=== PATIENT | female | born 1965 | race Caucasian/White ===

== ENCOUNTER 2017-06-13 15:50 | Emergency (ER) | payer OTHER ==
[~2017-06-13] VITALS: Ht 157.5 cm; Wt 121.8 kg
[2017-06-13 16:07] LABS: GLUCOSE,POINT OF CARE 361 MG/DL (70-110)
[2017-06-13] MEDS ORDERED: DSS100 PO (16:08)
[2017-06-13] MEDS ORDERED: CETI-290 PO (16:08)
[2017-06-13] MEDS ORDERED: LOSA25TA21 PO (16:08)
[2017-06-13] MEDS ORDERED: OMEP20 PO (16:08)
[2017-06-13] MEDS ORDERED: IBUP-2071 PO (16:08)
[2017-06-13] MEDS ORDERED: METF500T4 PO (16:08)
[2017-06-13] MEDS ORDERED: FLUT16H NASAL (16:08)
[2017-06-13] MEDS ORDERED: INSLAN SQ (16:08)
[2017-06-13] MEDS ORDERED: HYDR25TA PO (16:08)
[2017-06-13] MEDS ORDERED: ASPI81 PO (16:08)
[2017-06-13] MEDS ORDERED: ATOR40TA28 PO (16:08)
[2017-06-13 17:01] LABS: BASOPHILS % (AUTO) 0.5 % (0.0-2.0); EOSINOPHILS % (AUTO) 1.1 % (1.0-6.0); HEMATOCRIT 39.8 % (36-46); LYMPHOCYTES # (AUTO) 2.7 K/uL (1.0-4.8); LYMPHOCYTES % (AUTO) 36.8 % (22.0-44.0); MEAN CORPUSCULAR HEMOGLOBIN 31.4 pg (26.0-34.0); MEAN CORPUSCULAR HGB CONC 35.3 G/dL (31.0-37.0); MEAN CORPUSCULAR VOLUME 89 fL (80-100); MONOCYTES # (AUTO) 0.3 K/uL (0.1-1.0); MONOCYTES % (AUTO) 4.3 % (2.0-9.0); NEUTROPHILS # (AUTO) 4.2 K/uL (1.8-7.7); NEUTROPHILS % (AUTO) 57.3 % (40.0-70.0); PLATELET COUNT (AUTO) 148 K/uL (150-450); RED BLOOD CELL COUNT(AUTO) 4.48 MIL/uL (4.00-5.20); WHITE BLOOD COUNT (AUTO) 7.3 K/uL (4.5-11.0)
[2017-06-13 17:17] LABS: ANION GAP 9 mmol/L (8-16); CALCIUM, TOTAL 8.3 mg/dL (8.8-10.5); CARBON DIOXIDE 27 mmol/L (22-29); CHLORIDE 102 mmol/L (98-107); CREATININE 0.61 mg/dL (0.60-1.30); GLOMERULAR FILTR. RATE CALC > 60 mL/min (>60); POTASSIUM 3.7 mmol/L (3.5-5.1); SODIUM SERUM 138 mmol/L (136-145); UREA NITROGEN, BLOOD 13 mg/dL (7-18)
[2017-06-13 17:24] LABS: ALANINE AMINOTRANSFERASE 19 U/L (12-78); ALBUMIN 3.1 g/dL (3.4-5.0); ASPARTATE AMINOTRANSFERASE 11 U/L (15-37); BILIRUBIN,TOTAL 0.7 mg/dL (0.1-1.0); TOTAL PROTEIN, SERUM 6.7 g/dL (6.4-8.2)
[2017-06-13 17:33] LABS: PROTHROMBIN TIME 10.8 SEC (9.4-11.6)
[2017-06-13 18:33] VITALS: BP 145/79
[2017-06-13] MEDS ORDERED: HYDROCODONE/ACETAMINOPHEN 5-325 MG TABLET PO ONE (19:00)
== END 2017-06-13 20:05 | disposition home or self-care (01) ==
LOC: EMS 15:51
DX: M79.605 Pain in left leg (principal); E11.9 Type 2 diabetes mellitus without complications; E78.00 Pure hypercholesterolemia, unspecified; I10 Essential (primary) hypertension; Z79.4 Long term (current) use of insulin; Z79.82 Long term (current) use of aspirin
CPT/HCPCS: 82962; 93970; 99285

== ENCOUNTER 2018-09-06 11:59 | Emergency (ER) | payer OTHER ==
[~2018-09-06] VITALS: Ht 154.9 cm; Wt 117.3 kg
[~2018-09-06 11:59] MED LIST: ASPI81 PO; ATOR40TA28 PO; CETI-170 PO; DSS100 PO; FLUT16H NASAL; HYDR25TA PO; IBUP-2071 PO; INSLAN SQ; LOSA25TA41 PO; METF-960 PO; OMEP20 PO
[2018-09-06 12:14] LABS: GLUCOSE,POINT OF CARE 317 MG/DL (70-110)
[2018-09-06] MEDS ORDERED: PROMETHAZINE HCL/CODEINE 6.25-10MG/5ML SYRUP UDCUP PO ONE (13:30)
[2018-09-06 14:00] VITALS: BP 138/84
== END 2018-09-06 14:27 | disposition home or self-care (01) ==
LOC: EMS 12:01
DX: J40 Bronchitis, not specified as acute or chronic (principal); E11.9 Type 2 diabetes mellitus without complications; E78.00 Pure hypercholesterolemia, unspecified; I10 Essential (primary) hypertension; Z90.49 Acquired absence of other specified parts of digestive tract; Z79.82 Long term (current) use of aspirin; Z79.4 Long term (current) use of insulin

== ENCOUNTER 2021-08-19 11:21 | Emergency (ER) | payer OTHER ==
[~2021-08-19] VITALS: Ht 157.5 cm; Wt 118.2 kg
[~2021-08-19 11:21] MED LIST changes: +ASPI-1450 PO; -ASPI81 PO; -CETI-170 PO; +CETI-450 PO; -HYDR25TA PO; +HYDR25TA2 PO; +LOSA-381 PO; -LOSA25TA41 PO; -METF-960 PO
[2021-08-19] MEDS ORDERED: SODIUM CHLORIDE 0.9% 1,000 ML IV ONE ×2 (12:00→14:00)
[2021-08-19] MEDS ORDERED: MORPHINE SULFATE 4 MG/ML SYRINGE IVP ONE (12:00)
[2021-08-19 12:19] LABS: BASOPHILS % (AUTO) 0.8 % (0.0-2.0); EOSINOPHILS % (AUTO) 2.4 % (1.0-6.0); HEMATOCRIT 43.1 % (36-46); HEMOGLOBIN 14.9 g/dL (12.0-16.0); LYMPHOCYTES # (AUTO) 2.1 K/uL (1.0-4.8); LYMPHOCYTES % (AUTO) 31.6 % (22.0-44.0); MEAN CORPUSCULAR HEMOGLOBIN 31.3 pg (26.0-34.0); MEAN CORPUSCULAR HGB CONC 34.6 G/dL (31.0-37.0); MEAN CORPUSCULAR VOLUME 90 fL (80-100); MONOCYTES # (AUTO) 0.4 K/uL (0.1-1.0); MONOCYTES % (AUTO) 6.1 % (2.0-9.0); NEUTROPHILS # (AUTO) 3.9 K/uL (1.8-7.7); NEUTROPHILS % (AUTO) 59.1 % (40.0-70.0); PLATELET COUNT (AUTO) 168 K/uL (150-450); RED BLOOD CELL COUNT(AUTO) 4.77 MIL/uL (4.00-5.20); RED CELL DISTRIBUTION WIDTH 12.8 % (11.5-14.5)
[2021-08-19 12:35] LABS: ALANINE AMINOTRANSFERASE 28 U/L (12-78); ALBUMIN 3.1 g/dL (3.4-5.0); ALKALINE PHOSPHATASE 85 U/L (46-116); ANION GAP 6 mmol/L (8-16); ASPARTATE AMINOTRANSFERASE 23 U/L (15-37); BILIRUBIN,TOTAL 0.7 mg/dL (0.1-1.0); CALCIUM, TOTAL 9.2 mg/dL (8.8-10.5); CARBON DIOXIDE 30 mmol/L (22-29); CHLORIDE 100 mmol/L (98-107); CREATININE 0.67 mg/dL (0.60-1.30); GLOMERULAR FILTR. RATE CALC > 60 mL/min (>60); LIPASE 158 U/L (73-393); POTASSIUM 4.3 mmol/L (3.5-5.1); SODIUM SERUM 136 mmol/L (136-145); TOTAL PROTEIN, SERUM 7.4 g/dL (6.4-8.2); UREA NITROGEN, BLOOD 14 mg/dL (7-18)
[2021-08-19 12:37] LABS: GLUCOSE,RANDOM 408 mg/dL (70-110)
[2021-08-19 14:30] VITALS: BP 144/82
== END 2021-08-19 15:22 | disposition home or self-care (01) ==
LOC: EMS 11:21
DX: R10.31 Right lower quadrant pain (principal); E11.65 Type 2 diabetes mellitus with hyperglycemia; Z90.89 Acquired absence of other organs; Z79.4 Long term (current) use of insulin
CPT/HCPCS: 36415; 74176; 80053; 83690; 85025; 96361; 96374; 99284; J2270; J7030

== ENCOUNTER 2024-01-06 12:39 | Emergency (ER) | payer OTHER ==
[~2024-01-06] VITALS: Ht 152.4 cm; Wt 122.0 kg
[~2024-01-06 12:39] MED LIST changes: -ASPI-1450 PO; +ASPI81 PO; -ATOR40TA28 PO; +ATOR40TA71 PO; -CETI-450 PO; -DSS100 PO; +DULA0.75 SQ; -FLUT16H NASAL; -HYDR25TA2 PO; -IBUP-2071 PO; -INSLAN SQ; +LEVO750T68 PO; -LOSA-381 PO; +LOSA-417 PO; -OMEP20 PO
[2024-01-06] MEDS ORDERED: INSU100V51 SQ (12:55)
[2024-01-06] MEDS ORDERED: CHLO25TA3 PO (12:55)
[2024-01-06] MEDS ORDERED: DOXY100C5 PO (12:55)
[2024-01-06] MEDS ORDERED: BACTDSB PO (12:55)
[2024-01-06] MEDS ORDERED: EMPA10TA3 PO (12:55)
[2024-01-06] MEDS ORDERED: INSU100I26 SQ (12:55)
[2024-01-06 13:21] LABS: GLUCOMETER DEV NAME(LOC) ER.7; GLUCOSE,POINT OF CARE 336 MG/DL (70-110)
[2024-01-06 14:24] LABS: BASOPHILS % (AUTO) 0.5 % (0.0-2.0); EOSINOPHILS % (AUTO) 1.6 % (1.0-6.0); HEMATOCRIT 41.2 % (36-46); HEMOGLOBIN 13.8 g/dL (12.0-16.0); LYMPHOCYTES # (AUTO) 2.6 K/uL (1.0-4.8); LYMPHOCYTES % (AUTO) 33.1 % (22.0-44.0); MEAN CORPUSCULAR HEMOGLOBIN 30.9 pg (26.0-34.0); MEAN CORPUSCULAR HGB CONC 33.6 G/dL (31.0-37.0); MEAN CORPUSCULAR VOLUME 92 fL (80-100); MONOCYTES # (AUTO) 0.5 K/uL (0.1-1.0); MONOCYTES % (AUTO) 6.2 % (2.0-9.0); NEUTROPHILS # (AUTO) 4.6 K/uL (1.8-7.7); NEUTROPHILS % (AUTO) 58.6 % (40.0-70.0); PLATELET COUNT (AUTO) 167 K/uL (150-450); RED BLOOD CELL COUNT(AUTO) 4.48 MIL/uL (4.00-5.20); RED CELL DISTRIBUTION WIDTH 13.4 % (11.5-14.5); WHITE BLOOD COUNT (AUTO) 7.8 K/uL (4.5-11.0)
[2024-01-06 14:39] LABS: CREATININE 0.98 mg/dL (0.60-1.30); POTASSIUM 4.3 mmol/L (3.5-5.1)
[2024-01-06 14:44] LABS: ALBUMIN 2.9 g/dL (3.4-5.0); BILIRUBIN,TOTAL 0.7 mg/dL (0.1-1.0); TOTAL PROTEIN, SERUM 7.6 g/dL (6.4-8.2)
[2024-01-06] MEDS ORDERED: ASPI-1444 PO (14:51)
[2024-01-06] MEDS ORDERED: DULA3PEN SQ (14:51)
[2024-01-06] MEDS ORDERED: SODIUM CHLORIDE 0.9% 1,000 ML IV ONE (16:00)
[2024-01-06] MEDS: BACITRACIN 0.9 GM PACKET OINTMENT TP ONE (16:48)
[2024-01-06] MEDS ORDERED: DOXY-354 PO (16:54)
[2024-01-06] MEDS ORDERED: CEPH-558 PO (16:54)
[2024-01-06] MEDS ORDERED: BACI28.410 TP (16:54)
[2024-01-06 17:02] VITALS: BP 133/81; PULSE 88; RESP 16; TEMP 97.9
[2024-01-06] MEDS: CEPHALEXIN MONOHYDRATE 500 MG CAPSULE PO ONE (17:39)
[2024-01-06] MEDS: DOXYCYCLINE HYCLATE 100 MG TABLET PO ONE (17:39)
== END 2024-01-06 17:53 | disposition home or self-care (01) ==
LOC: EMS 12:42
DX: N61.1 Abscess of the breast and nipple (principal); E11.9 Type 2 diabetes mellitus without complications; Z90.49 Acquired absence of other specified parts of digestive tract
CPT/HCPCS: 80053; 82962; 85025; 99284

== ENCOUNTER 2024-01-09 13:21 | Emergency (ER) | payer OTHER ==
[~2024-01-09] VITALS: Ht 152.4 cm; Wt 122.7 kg
[~2024-01-09 13:21] MED LIST changes: +ASPI-1444 PO; +BACI28.410 TP; +BACTDSB PO; +CEPH-558 PO; +CHLO25TA3 PO; +DOXY-354 PO; +DOXY100C5 PO; +DULA3PEN SQ; +EMPA10TA3 PO; +INSU100I26 SQ; +INSU100V51 SQ
[2024-01-09 13:30] VITALS: TEMP 97.8
[2024-01-09] MEDS: BACITRACIN 0.9 GM PACKET OINTMENT TP ONE (16:00)
[2024-01-09 16:01] VITALS: BP 132/69; PULSE 82; RESP 15
== END 2024-01-09 16:03 | disposition home or self-care (01) ==
LOC: EMS 13:30
DX: Z48.00 Encounter for change or removal of nonsurgical wound dressing (principal); E11.9 Type 2 diabetes mellitus without complications
CPT/HCPCS: 82962; 99282; Z7502; Z7610

== ENCOUNTER 2024-09-08 17:52 | Inpatient (IN) | payer OTHER ==
[~2024-09-08] VITALS: Ht 152.4 cm; Wt 110.5 kg
[~2024-09-08 17:52] MED LIST changes: -ASPI81 PO; -ATOR40TA71 PO; -BACTDSB PO; -DOXY100C5 PO; -DULA0.75 SQ; -DULA3PEN SQ; -INSU100V51 SQ; -LEVO750T68 PO
[2024-09-08] MEDS ORDERED: 0.9% SODIUM CHLORIDE 10 ML SYRINGE IVP PRN (18:15)
[2024-09-08] MEDS ORDERED: FLUT16SP NASAL (18:15)
[2024-09-08] MEDS ORDERED: SEMA0.258 SQ (18:15)
[2024-09-08] MEDS ORDERED: EMPA25TA3 PO (18:15)
[2024-09-08 18:34] LABS: ANION GAP 12 mmol/L (8-16); BASOPHILS % (AUTO) 0.1 % (0.0-2.0); CALCIUM, TOTAL 8.9 mg/dL (8.8-10.5); CARBON DIOXIDE 26 mmol/L (22-29); CHLORIDE 95 mmol/L (98-107); CREATININE 1.29 mg/dL (0.60-1.30); EOSINOPHILS % (AUTO) 0 % (1.0-6.0); GLOMERULAR FILTR. RATE CALC 42 mL/min (>60); GLUCOSE,RANDOM 364 mg/dL (70-110); HEMATOCRIT 37.4 % (36-46); HEMOGLOBIN 12.2 g/dL (12.0-16.0); LYMPHOCYTES # (AUTO) 0.6 K/uL (1.0-4.8); LYMPHOCYTES % (AUTO) 3.6 % (22.0-44.0); MEAN CORPUSCULAR HEMOGLOBIN 29.6 pg (26.0-34.0); MEAN CORPUSCULAR HGB CONC 32.8 G/dL (31.0-37.0); MEAN CORPUSCULAR VOLUME 90 fL (80-100); MONOCYTES # (AUTO) 0.9 K/uL (0.1-1.0); MONOCYTES % (AUTO) 5.4 % (2.0-9.0); NEUTROPHILS # (AUTO) 14.7 K/uL (1.8-7.7); PLATELET COUNT (AUTO) 229 K/uL (150-450); POTASSIUM 3.6 mmol/L (3.5-5.1); RED BLOOD CELL COUNT(AUTO) 4.14 MIL/uL (4.00-5.20); RED CELL DISTRIBUTION WIDTH 13.9 % (11.5-14.5); SODIUM SERUM 133 mmol/L (136-145); UREA NITROGEN, BLOOD 32 mg/dL (7-18); WHITE BLOOD COUNT (AUTO) 16.2 K/uL (4.5-11.0)
[2024-09-08 18:38] LABS: PROTHROMBIN TIME 11.6 SEC (9.4-11.6)
[2024-09-08 18:41] LABS: NEUTROPHILS % (AUTO) 90.9 % (40.0-70.0)
[2024-09-08 18:43] LABS: TROPONIN I-HIGH SENSITIVITY 23 ng/L (<51)
[2024-09-08 18:47] LABS: LACTIC ACID 2.1 mmol/L (0.4-2.0)
[2024-09-08 18:58] LABS: B-TYPE NATRIURETIC PEPTIDE 242 pg/mL (0-100)
[2024-09-08 19:00] LABS: RBC MORPHOLOGY COMMENT NORMAL RBC MORPH
[2024-09-08 19:11] LABS: INFLUENZA TYPE A NEGATIVE FOR TYPE A (NEGATIVE); INFLUENZA TYPE B NEGATIVE FOR TYPE B (NEGATIVE)
[2024-09-08] MEDS: SODIUM CHLORIDE 0.9% 2,100 ML IV ONE (19:22)
[2024-09-08] MEDS: CefTRIAXone 1 GM/DEXTROSE 50 ML IV ONE (19:22)
[2024-09-08] MEDS: ONDANSETRON HCL 4 MG/2 ML VIAL IVP ONE (19:22)
[2024-09-08] MEDS: SODIUM CHLORIDE 0.9% 500 ML IV ONE (19:34)
[2024-09-08 19:42] LABS: APPEARANCE,URINE CLEAR (CLEAR); BILIRUBIN,URINE NEGATIVE (NEGATIVE); COLOR,URINE LIGHT YELLOW (YELLOW); GLUCOSE, URINE (UA) >=1000 mg/dL (NEGATIVE); LEUKOCYTE ESTERASE ,URINE MODERATE (NEGATIVE); NITRATE,URINE POSITIVE (NEGATIVE); OCCULT BLOOD,URINE MODERATE (NEGATIVE); PH,URINE 5.5 (5.0-8.0); PROTEIN,URINE 30-70 mg/dL (NEGATIVE); SPECIFIC GRAVITIY, URINE 1.018 (1.003-1.030); UROBILINOGEN,URINE <=1.0 mg/dL (<=1.0)
[2024-09-08] MEDS: FUROSEMIDE 20 MG/2 ML VIAL IVP ONE (19:54)
[2024-09-08 20:01] LABS: BACTERIA,URINE Many /HPF (None Seen); WBC,URINE 26-50 /HPF (0-5)
[2024-09-08 20:02] LABS: SQUAMOUS EPITHELIAL CELL,UR Few /LPF (None Seen)
[2024-09-08] MEDS: ACETAMINOPHEN 650 MG/ISO-OSM 65 ML IV ONE (20:16)
[2024-09-08 20:37] LABS: COVID AG,FIA SOURCE NASAL SWAB
[2024-09-08 20:53] LABS: SARS-COV2 (COVID) ANTIGEN,FIA Negative (Negative)
[2024-09-08] MEDS ORDERED: MAGNESIUM HYDROXIDE SUSPENSION 30 ML UDCUP PO PRN (21:15)
[2024-09-08] MEDS ORDERED: BISACODYL 10 MG RECTAL RECTAL SUPPOSITORY PR PRN (21:15)
[2024-09-08] MEDS ORDERED: ONDANSETRON HCL 4 MG/2 ML VIAL IVP PRN (21:15)
[2024-09-08] MEDS ORDERED: MORPHINE SULFATE 2 MG/ML SYRINGE IVP PRN (21:15)
[2024-09-08] MEDS: ALBUMIN HUMAN 25%-50GM/200ML 200 ML IV SCH (22:05)
[2024-09-08 23:24] VITALS: BP 107/66; PULSE 98; RESP 18; TEMP 98.3; O2SAT 98
[2024-09-09] MEDS: HEPARIN SODIUM,PORCINE 5,000 UNITS/ML VIAL SQ SCH (00:28)
[2024-09-09 04:13] VITALS: BP 110/65; PULSE 124; RESP 19; TEMP 99.3; O2SAT 97
[2024-09-09] MEDS: HYDROCODONE/ACETAMINOPHEN 5-325 MG TABLET PO PRN (04:29)
[2024-09-09 05:51] LABS: BASOPHILS % (AUTO) 0.4 % (0.0-2.0); EOSINOPHILS % (AUTO) 0.1 % (1.0-6.0); HEMATOCRIT 32.5 % (36-46); HEMOGLOBIN 10.9 g/dL (12.0-16.0); MEAN CORPUSCULAR HGB CONC 33.5 G/dL (31.0-37.0); MEAN CORPUSCULAR VOLUME 90 fL (80-100); MONOCYTES # (AUTO) 0.8 K/uL (0.1-1.0); MONOCYTES % (AUTO) 5.8 % (2.0-9.0); NEUTROPHILS # (AUTO) 12.4 K/uL (1.8-7.7); PLATELET COUNT (AUTO) 201 K/uL (150-450); RED BLOOD CELL COUNT(AUTO) 3.63 MIL/uL (4.00-5.20); RED CELL DISTRIBUTION WIDTH 13.5 % (11.5-14.5); WHITE BLOOD COUNT (AUTO) 14.3 K/uL (4.5-11.0)
[2024-09-09 05:56] LABS: NEUTROPHILS % (AUTO) 86.7 % (40.0-70.0)
[2024-09-09 06:00] LABS: CALCIUM, TOTAL 9.2 mg/dL (8.8-10.5); CREATININE 1.18 mg/dL (0.60-1.30); POTASSIUM 3.4 mmol/L (3.5-5.1)
[2024-09-09] MEDS: ASPIRIN 81 MG DR TABLET PO SCH (08:11)
[2024-09-09] MEDS: PANTOPRAZOLE SODIUM 40 MG DR TABLET PO SCH (08:12)
[2024-09-09] MEDS: DOCUSATE SODIUM 100 MG CAPSULE PO SCH (08:21)
[2024-09-09 08:30] VITALS: BP 88/47; PULSE 107; RESP 18; TEMP 99.8; O2SAT 99
[2024-09-09] MEDS: POTASSIUM CHLORIDE 20 MEQ ER TABLET PO ONE (09:38)
[2024-09-09] MEDS: SODIUM CHLORIDE 0.9% 250 ML IV ONE (09:39)
[2024-09-09 10:10] VITALS: BP 120/65; PULSE 107
[2024-09-09] MEDS: SODIUM CHLORIDE 0.9% 1,000 ML IV SCH (10:40)
[2024-09-09 11:39] VITALS: BP 132/60; PULSE 117; RESP 19; TEMP 98.5; O2SAT 98
[2024-09-09 16:07] VITALS: BP 114/62; PULSE 130; RESP 18; TEMP 100.7; O2SAT 96
[2024-09-09 19:33] VITALS: BP 106/54; PULSE 126; RESP 19; TEMP 102.2; O2SAT 97
[2024-09-09] MEDS: ACETAMINOPHEN 325 MG TABLET PO PRN (19:38)
[2024-09-09 20:31] LABS: GLUCOMETER DEV NAME(LOC) 5N.1D; GLUCOSE,POINT OF CARE 299 MG/DL (70-110)
[2024-09-09] MEDS: CefTRIAXone 1 GM/DEXTROSE 50 ML IV SCH (20:37)
[2024-09-09] MEDS ORDERED: DEXTROSE 50%-WATER 25 GM/50 ML SYRINGE IVP PRN (23:15)
[2024-09-09] MEDS ORDERED: ALBUTEROL SULFATE 2.5 MG/0.5 ML NEB SOLUTION NEB PRN (23:15)
[2024-09-10] VITALS (9 sets, daily range): BP systolic 100–135; BP diastolic 52–71; PULSE 100–126; RESP 17–19; TEMP 98.4–101.2; O2SAT 93–95
[2024-09-10] MEDS: INSULIN LISPRO 100 UNITS/ML SQ PRN (06:26)
[2024-09-10 07:16] LABS: BASOPHILS % (AUTO) 0.5 % (0.0-2.0); EOSINOPHILS % (AUTO) 0.5 % (1.0-6.0); HEMATOCRIT 31.2 % (36-46); HEMOGLOBIN 10.3 g/dL (12.0-16.0); LYMPHOCYTES # (AUTO) 1.4 K/uL (1.0-4.8); LYMPHOCYTES % (AUTO) 12.1 % (22.0-44.0); MEAN CORPUSCULAR HEMOGLOBIN 29.9 pg (26.0-34.0); MEAN CORPUSCULAR HGB CONC 32.8 G/dL (31.0-37.0); MEAN CORPUSCULAR VOLUME 91 fL (80-100); MONOCYTES # (AUTO) 0.6 K/uL (0.1-1.0); MONOCYTES % (AUTO) 5.3 % (2.0-9.0); NEUTROPHILS # (AUTO) 9.6 K/uL (1.8-7.7); NEUTROPHILS % (AUTO) 81.6 % (40.0-70.0); PLATELET COUNT (AUTO) 191 K/uL (150-450); RED BLOOD CELL COUNT(AUTO) 3.43 MIL/uL (4.00-5.20); RED CELL DISTRIBUTION WIDTH 13.5 % (11.5-14.5); WHITE BLOOD COUNT (AUTO) 11.8 K/uL (4.5-11.0)
[2024-09-10 07:19] LABS: CALCIUM, TOTAL 8.5 mg/dL (8.8-10.5); CREATININE 1.22 mg/dL (0.60-1.30); POTASSIUM 3.6 mmol/L (3.5-5.1)
[2024-09-10 11:40] LABS: GLUCOMETER DEV NAME(LOC) 5S.2D; GLUCOSE,POINT OF CARE 236 MG/DL (70-110)
[2024-09-10] MEDS ORDERED: SEMA1PEN3 SQ (12:03)
[2024-09-10] MEDS: *CLINICAL-LEVOFLOXACIN IVPB DOSING CLINICAL ONE (12:47)
[2024-09-10 13:11] LABS: BILIRUBIN,DIRECT 0.4 mg/dL (0.00-0.20); BILIRUBIN,TOTAL 1.1 mg/dL (0.1-1.0); TOTAL PROTEIN, SERUM 7.6 g/dL (6.4-8.2)
[2024-09-10 14:11] LABS: GLUCOMETER DEV NAME(LOC) 5N.1D; GLUCOSE,POINT OF CARE 237 MG/DL (70-110)
[2024-09-10] MEDS: PIPERACILLIN/TAZO 3.375 GM/D5W 50 ML IV SCH (14:37)
[2024-09-10] MEDS: LEVOFLOXACIN 750 MG/D5% WATER 150 ML IV SCH (15:22)
[2024-09-10] MEDS ORDERED: SODIUM CHLORIDE 0.9% 250 ML IV ONE (20:43)
[2024-09-11 03:47] VITALS: BP 116/64; PULSE 108; RESP 19; TEMP 98.6; O2SAT 96
[2024-09-11 05:51] LABS: GLUCOMETER DEV NAME(LOC) 5S.2D; GLUCOSE,POINT OF CARE 335 MG/DL (70-110)
[2024-09-11 05:51] LABS: GLUCOMETER DEV NAME(LOC) 5S.2D; GLUCOSE,POINT OF CARE 256 MG/DL (70-110)
[2024-09-11 06:28] LABS: BASOPHILS % (AUTO) 0.3 % (0.0-2.0); EOSINOPHILS % (AUTO) 0.4 % (1.0-6.0); HEMATOCRIT 28.9 % (36-46); HEMOGLOBIN 9.6 g/dL (12.0-16.0); LYMPHOCYTES # (AUTO) 1.3 K/uL (1.0-4.8); LYMPHOCYTES % (AUTO) 13.4 % (22.0-44.0); MEAN CORPUSCULAR HEMOGLOBIN 30.1 pg (26.0-34.0); MEAN CORPUSCULAR HGB CONC 33.2 G/dL (31.0-37.0); MEAN CORPUSCULAR VOLUME 91 fL (80-100); MONOCYTES # (AUTO) 0.7 K/uL (0.1-1.0); MONOCYTES % (AUTO) 6.9 % (2.0-9.0); NEUTROPHILS # (AUTO) 7.8 K/uL (1.8-7.7); PLATELET COUNT (AUTO) 177 K/uL (150-450); RED CELL DISTRIBUTION WIDTH 13.5 % (11.5-14.5); WHITE BLOOD COUNT (AUTO) 9.9 K/uL (4.5-11.0)
[2024-09-11 06:36] LABS: CALCIUM, TOTAL 8.8 mg/dL (8.8-10.5); CREATININE 1.26 mg/dL (0.60-1.30); POTASSIUM 3.6 mmol/L (3.5-5.1)
[2024-09-11 07:55] LABS: GLUCOMETER DEV NAME(LOC) 5S.2D; GLUCOSE,POINT OF CARE 275 MG/DL (70-110)
[2024-09-11 08:27] VITALS: BP 138/73; PULSE 115; RESP 18; TEMP 100; O2SAT 95
[2024-09-11 11:22] VITALS: BP 121/69; PULSE 108; RESP 19; TEMP 98.7; O2SAT 96
[2024-09-11 11:45] LABS: GLUCOMETER DEV NAME(LOC) 5N.1D; GLUCOSE,POINT OF CARE 257 MG/DL (70-110)
[2024-09-11 15:34] VITALS: BP 110/64; PULSE 94; RESP 20; TEMP 98.1; O2SAT 95
[2024-09-11 17:10] LABS: GLUCOMETER DEV NAME(LOC) 5S.2D; GLUCOSE,POINT OF CARE 215 MG/DL (70-110)
[2024-09-11 20:39] VITALS: BP 134/91; PULSE 109; RESP 21; TEMP 98.3; O2SAT 94
[2024-09-12] VITALS (7 sets, daily range): BP systolic 117–142; BP diastolic 70–82; PULSE 78–104; RESP 17–21; TEMP 97.9–98.8; O2SAT 94–99
[2024-09-12 06:55] LABS: GLUCOMETER DEV NAME(LOC) 5S.2D; GLUCOSE,POINT OF CARE 303 MG/DL (70-110)
[2024-09-12 08:30] LABS: BASOPHILS % (AUTO) 0.5 % (0.0-2.0); EOSINOPHILS % (AUTO) 1.5 % (1.0-6.0); HEMATOCRIT 29.1 % (36-46); HEMOGLOBIN 9.6 g/dL (12.0-16.0); LYMPHOCYTES # (AUTO) 1.2 K/uL (1.0-4.8); LYMPHOCYTES % (AUTO) 17.5 % (22.0-44.0); MEAN CORPUSCULAR HEMOGLOBIN 29.8 pg (26.0-34.0); MEAN CORPUSCULAR VOLUME 90 fL (80-100); MONOCYTES # (AUTO) 0.5 K/uL (0.1-1.0); MONOCYTES % (AUTO) 7.8 % (2.0-9.0); NEUTROPHILS # (AUTO) 5.1 K/uL (1.8-7.7); NEUTROPHILS % (AUTO) 72.7 % (40.0-70.0); PLATELET COUNT (AUTO) 193 K/uL (150-450); RED BLOOD CELL COUNT(AUTO) 3.22 MIL/uL (4.00-5.20); RED CELL DISTRIBUTION WIDTH 13.8 % (11.5-14.5)
[2024-09-12 08:35] LABS: GLUCOMETER DEV NAME(LOC) 5N.1D; GLUCOSE,POINT OF CARE 277 MG/DL (70-110)
[2024-09-12 08:44] LABS: CREATININE 1.39 mg/dL (0.60-1.30); POTASSIUM 3.6 mmol/L (3.5-5.1)
[2024-09-12 11:40] LABS: GLUCOMETER DEV NAME(LOC) 5N.1D; GLUCOSE,POINT OF CARE 262 MG/DL (70-110)
[2024-09-12] MEDS ORDERED: CALCIUM CARBONATE 500 MG CHEWABLE TABLET CHEW PRN (14:00)
[2024-09-12] MEDS: DEXTROSE 5%-WATER 500 ML IV ONE (15:52)
[2024-09-12 21:36] LABS: GLUCOMETER DEV NAME(LOC) 5N.1D; GLUCOSE,POINT OF CARE 265 MG/DL (70-110)
[2024-09-12 21:36] LABS: GLUCOMETER DEV NAME(LOC) 5S.2D; GLUCOSE,POINT OF CARE 254 MG/DL (70-110)
[2024-09-13 03:58] VITALS: BP 134/74; PULSE 93; RESP 19; TEMP 98; O2SAT 98
[2024-09-13 08:00] VITALS: BP 137/76; PULSE 96; RESP 18; TEMP 97.5; O2SAT 99
[2024-09-13 09:41] LABS: GLUCOMETER DEV NAME(LOC) 5N.1D; GLUCOSE,POINT OF CARE 258 MG/DL (70-110)
[2024-09-13 12:00] VITALS: BP 161/82; PULSE 94; RESP 18; TEMP 97; O2SAT 100
[2024-09-13 15:25] LABS: GLUCOMETER DEV NAME(LOC) 5S.2D; GLUCOSE,POINT OF CARE 239 MG/DL (70-110)
[2024-09-13 16:03] VITALS: BP 146/77; PULSE 97; RESP 18; TEMP 96.8; O2SAT 99
[2024-09-13 20:00] VITALS: BP 142/78; PULSE 92; RESP 18; TEMP 97.5; O2SAT 97
[2024-09-13] MEDS: ZOLPIDEM TARTRATE 5 MG TABLET PO PRN (20:45)
[2024-09-13 21:01] LABS: GLUCOMETER DEV NAME(LOC) 5S.2D; GLUCOSE,POINT OF CARE 265 MG/DL (70-110)
[2024-09-13 21:01] LABS: GLUCOMETER DEV NAME(LOC) 5N.1D; GLUCOSE,POINT OF CARE 245 MG/DL (70-110)
[2024-09-14] VITALS: BP 132/75; PULSE 90; RESP 16; TEMP 97.6; O2SAT 94
[2024-09-14 04:00] VITALS: BP 137/75; PULSE 90; RESP 21; TEMP 97.6; O2SAT 95
[2024-09-14 08:31] VITALS: BP 143/79; PULSE 93; RESP 20; TEMP 97.7; O2SAT 97
[2024-09-14 08:49] LABS: POTASSIUM 3.8 mmol/L (3.5-5.1)
[2024-09-14 09:04] LABS: ALBUMIN 5.8 g/dL (3.4-5.0); CALCIUM, TOTAL 9.8 mg/dL (8.8-10.5); CREATININE 1.28 mg/dL (0.60-1.30); TOTAL PROTEIN, SERUM 8.2 g/dL (6.4-8.2)
[2024-09-14 11:26] VITALS: BP 141/85; PULSE 97; RESP 20; TEMP 98.4; O2SAT 93
[2024-09-14] MEDS ORDERED: AMOX-457 PO (12:28)
[2024-09-14 12:36] LABS: GLUCOMETER DEV NAME(LOC) 5N.1D; GLUCOSE,POINT OF CARE 230 MG/DL (70-110)
[2024-09-14 12:36] LABS: GLUCOMETER DEV NAME(LOC) 5N.1D; GLUCOSE,POINT OF CARE 263 MG/DL (70-110)
[2024-09-14] MEDS ORDERED: CeFAZolin 1 GM/DEXTROSE 50 ML IV SCH (16:00)
== END 2024-09-14 14:00 | disposition home or self-care (01) | DRG 720 ==
LOC: EMS 17:52 → EDH 21:14 → 5S 23:05
PROVIDERS: ADMIT Internal Medicine; ATTEND Internal Medicine
DX: A41.51 Sepsis due to Escherichia coli [E. coli] (principal); J96.01 Acute respiratory failure with hypoxia; J18.9 Pneumonia, unspecified organism; I11.0 Hypertensive heart disease with heart failure; E87.1 Hypo-osmolality and hyponatremia; I50.9 Heart failure, unspecified; N39.0 Urinary tract infection, site not specified; E11.65 Type 2 diabetes mellitus with hyperglycemia; B96.20 Unspecified Escherichia coli [E. coli] as the cause of diseases classified elsewhere; Z20.822 Contact with and (suspected) exposure to COVID-19; N61.1 Abscess of the breast and nipple; E78.00 Pure hypercholesterolemia, unspecified; E66.9 Obesity, unspecified; Z79.82 Long term (current) use of aspirin; Z68.42 Body mass index [BMI] 45.0-49.9, adult
CPT/HCPCS: 71045; 71250; 72192; 74150; 80048; 80053; 80076; 81001; 82962; 83605; 83880; 84145; 84484; 85025; 85610; 87040; 87077; 87086; 87186; 87205; 87804; 93005; 97116; 97162; 97530; 99285; G0378; J0131; J0690; J0696; J1644; J1940; J1956; J2405; J2543; J7030; J7040; J7050; P9046; 36415-L1; 36415-TC